=== PATIENT | male | born 1930 | race Caucasian/White ===

== ENCOUNTER → 2016-11-17 | Outpatient (REF) ==
[2016-11-17 16:02] LABS: MEAN CORPUSCULAR HEMOGLOBIN 28.7 PG (26.0-34.0); MEAN CORPUSCULAR HGB CONC 33.2 g/dL (31.0-37.0); MEAN CORPUSCULAR VOLUME 87 FL (80-100); MEAN PLATELET VOLUME 11.2 FL (6.0-9.5); PLATELET COUNT 158 10^3uL (150-450); WHITE BLOOD COUNT 7.18 10^3uL (4.0-11.0)
[2016-11-17 16:18] LABS: ALBUMIN 4.2 g/dL (3.4-5.0); ANION GAP 15.2 MEQ/L (3-15); CALCULATED IONIZED CALCIUM 3.8 mg/dL (3.8-4.6); TOTAL PROTEIN 7.7 g/dL (6.4-8.5)
[2016-11-17 16:23] LABS: BAND NEUTROPHILS % 0 % (0-6); EOSINOPHILS % 5 % (0-4); LYMPHOCYTES # 2.1 #; MONOCYTES # 0.7 #; MONOCYTES % 10 % (3-11); RBC MORPH NORMAL (NORMAL); SEGMENTED NEUTROPHILS % 55 % (51-67); TOTAL CELLS COUNTED 100
== END ==
LOC: CLAB.BLUES 13:50
PROVIDERS: ATTEND Family Medicine
DX: M79.672 Pain in left foot (principal)
CPT/HCPCS: 80053; 82607; 83036; 84550; 85007; 85027